=== PATIENT | female | born 2000 | race Caucasian/White ===

== ENCOUNTER 2019-11-26 13:06 | Emergency (ER) | payer BC ==
[~2019-11-26] VITALS: Ht 182.9 cm; Wt 77.3 kg
[2019-11-26] MEDS ORDERED: TAMIFLU 75MG75 MG PO (13:38)
[2019-11-26 15:00] VITALS: BP 126/82; PULSE 82; TEMP 98.6
== END 2019-11-26 15:05 | disposition home or self-care (01) ==
LOC: COL.ER 13:06
DX: J11.1 Influenza due to unidentified influenza virus with other respiratory manifestations (principal)